=== PATIENT | female | born 1985 ===

== ENCOUNTER 2019-02-24 14:27 | Emergency (ER) | payer OTHER ==
[2019-02-24 14:48] VITALS: BP 170/97
--- NOTE | 2019-02-24 15:04 | UC ---
Throat Pain/Nasal Ambrosio HPI - HPI Summary HPI Summary: Awoke this morning with a sore throat, mild dysphagia, diffuse arthralgias and a low grade fever. No cough or headache. - History of Current Complaint Chief Complaint: UCGeneralIllness Stated Complaint: THROAT COMPLAINT Time Seen by Provider: 02/24/19 14:50 Hx Obtained From: Patient Hx Last Menstrual Period: 01/31/19 ?: No Onset/Duration: Gradual Onset, Lasting Hours Severity: Moderate Pain Intensity: 6 Cough: None Associated Signs & Symptoms: Positive: Dysphagia, Fever. Negative: Hoarseness, Sinus Discomfort, Vomiting - Epiglottits Risk Factors Epiglottis Risk Factors: Negative - Allergies/Home Medications Allergies/Adverse Reactions: Allergies Allergy/AdvReac Type Severity Reaction Status Date / Time No Known Allergies Allergy Verified 08/29/16 12:21 PMH/Surg Hx/FS Hx/Imm Hx Previously Healthy: Yes - overweight - Surgical History Surgical History: None - Family History Known Family History: Positive: None - states no diabetes ro heart disease or chronic health concerns in FH - Social History Occupation: Employed Full-time Lives: Alone Alcohol Use: Rare Substance Use Type: None Smoking Status (MU): Never Smoked Tobacco Have You Smoked in the Last Year: No - Immunization History Hx Tetanus, Diphtheria Vaccination: Yes Vaccination Up to Date: Yes Review of Systems All Other Systems Reviewed And Are Negative: Yes Constitutional: Positive: Fatigue Skin: Positive: Negative Eyes: Positive: Negative ENT: Positive: Sore Throat. Negative: Ear Ache, Sinus Congestion Respiratory: Positive: Negative Cardiovascular: Positive: Negative - denies hypertension and states that her last BP was normal, but cannot recall when that was done. Gastrointestinal: Positive: Negative Genitourinary: Positive: Negative Motor: Positive: Negative Neurovascular: Positive: Negative Musculoskeletal: Positive: Arthralgia Neurological: Positive: Negative Psychological: Positive: Negative Is Patient Immunocompromised?: No Physical Exam Triage Information Reviewed: Yes Appearance: Well-Appearing, Pain Distress - mild, Obese Vital Signs: Initial Vital Signs Temp 99.4 F 02/24/19 14:42 Pulse 94 02/24/19 14:42 Resp 16 02/24/19 14:42 BP 170/97 02/24/19 14:42 Pulse Ox 99 02/24/19 14:42 Eyes: Positive: Conjunctiva Clear ENT: Positive: Pharyngeal erythema, Tonsillar swelling - mild to moderate Dental Exam: Normal Neck: Positive: Supple, Nontender, No Lymphadenopathy - reports tenderness, but no enlargement. Respiratory: Positive: Lungs clear, Normal breath sounds Cardiovascular: Positive: RRR, No Murmur Musculoskeletal: Positive: Strength Intact Neurological: Positive: Alert Psychological Exam: Normal Skin Exam: Normal Throat Pain/Nasal Course/Dx - Course Course Of Treatment: symptomatic treatment of viral pharyngitis with ibuprofen, gargling, follow up as needed. - Differential Dx/Diagnosis Differential Diagnosis/HQI/PQRI: Laryngitis, Pharyngitis, Tonsillitis, URI Provider Diagnosis: Viral pharyngitis Discharge - Sign-Out/Discharge Documenting (check all that apply): Patient Departure All imaging exams completed and their final reports reviewed: No Studies - Discharge Plan Condition: Stable Disposition: HOME Patient Education Materials: Pharyngitis (ED) Referrals: No Primary Care Phys,NOPCP [Primary Care Provider] - Additional Instructions: As reviewed, this is likely a viral illness and treatment with acetaminophen or ibuprofen, salt water gargling, lots of fluids is the best approach. (Rapid strep was negative.). Please ensure that you follow up with a primary care doctor for a blood pressure check as today's readings were high --the second reading was 159/85. - Billing Disposition and Condition Condition: STABLE Disposition: Home
== END 2019-02-24 15:26 | disposition home or self-care (01) ==
LOC: UCCORT 14:27
DX: J02.9 Acute pharyngitis, unspecified (principal); M25.50 Pain in unspecified joint
CPT/HCPCS: 87651; 99211; G0463